=== PATIENT | male | born 1950 | race Caucasian/White ===

== ENCOUNTER 2018-12-16 10:58 | Outpatient (CLI) | payer MEDICARE, BC | END 2018-12-16 16:28 | disposition home or self-care (01) | LOC: D.CATH 10:58 | DX: I25.10 Atherosclerotic heart disease of native coronary artery without angina pectoris (principal); I65.29 Occlusion and stenosis of unspecified carotid artery ==

== ENCOUNTER 2019-01-26 07:14 | Outpatient (CLI) | payer MEDICARE, BC ==
[~2019-01-26] VITALS: Ht 180.3 cm; Wt 105.0 kg
--- NOTE | ~2019-01-26 | HEMODYNAMI ---
PATIENT:RANDALL FUENTES MEDICAL RECORD: [id number] : 54 LOCATION:[facility] ADMISSION DATE: 01/26/19 Generatedon:01/26/201911:48 Patient name: RANDALL FUENTES Patient #: [id number] SSN: : 1950 Date of study: 01/26/2019 Page: Of Hemodynamic Procedure Report Patient Data Patient Demographics Procedure consent was obtained First Name: RANDALL Gender: Male Last Name: GINA : 1950 Middle Initial: RUSTAM Age: 68 year(s) Patient #: [id number] Race: Unknown Additional ID: [id number] Contact details [address]: [address] [place] [address] [address] State: [place] City: [place] Zip code: [address] Admission Admission Data Admission Date: 01/26/2019 Admission Time: 7:14 Procedure Procedure Types Cath Procedure Peripheral Cath Diagnostic Procedure 4-Vessel Subclavian Arteriogram Uni Procedure Description Procedure Date Procedure Date: 01/26/2019 Procedure Start Time: 10:50 Procedure Staff Name Function Parvez Franco MD Performing Physician James Castro RT Monitor ERICKA ASKEW RT Scrub Manju Kwon RN Nurse Procedure Data Cath Procedure Fluoroscopy Diagnostic fluoroscopy Total fluoroscopy Time: time: 10.3 min 10.3 min Diagnostic fluoroscopy Total fluoroscopy dose: dose: 1511 mGy 1511 mGy Contrast Material Contrast Material Type Amount (ml) Isovue 300 200 Entry Location Entry Primary Successful Side Size Upsize Upsize Entry Closure Succes sful Closure Location (Fr) 1 (Fr) 2 (Fr) Remarks Device Remarks Femoral Right 5 Fr Exoseal artery Diagnostic catheters Device Type Used For End Catheter Placement Merit ULTRA BOLUS FLUSH 5Fr 90CM catheter ([id number]) Procedure Medications Medication Administration Route Dosage Versed I.V. 1 mg Fentanyl I.V. 50 mcg Versed I.V. 0.5 mg Fentanyl I.V. 25 mcg Versed I.V. 0.5 mg Heparin Bolus I.V. 4000 units Hemodynamics Rest Heart Rate: 91 (bpm) Snapshots Pre Cath Intra NCS Post Cath Vital Signs Time Heart Resp SPO2 etCO2 NIBP (mmHg) Rhythm Pain Sedation Rate (ipm) (%) (mmHg) Status Level (bpm) 10:13:50 33.8 116/86(97) NSR 0 (11) 10(A) , No pain 10:16:17 30.8 162/101(135) NSR 0 (11) 10(A) , No pain 10:17:33 35.3 163/92(131) NSR 0 (11) 10(A) , No pain 10:19:05 102 1 96 33.8 160/93(118) NSR 0 (11) 10(A) , No pain 10:23:24 90 13 94 33.8 160/90(127) NSR 0 (11) 10(A) , No pain 10:27:37 90 10 95 32.3 162/90(123) NSR 0 (11) 10(A) , No pain 10:31:54 90 11 95 25.5 158/93(124) NSR 0 (11) 10(A) , No pain 10:36:09 90 21 95 8.2 164/96(126) NSR 0 (11) 10(A) , No pain 10:40:30 91 10 94 0 148/87(128) NSR 0 (11) 10(A) , No pain 10:45:29 91 9 98 24 Measuring NSR 0 (11) 10(A) , No pain 10:46:53 92 10 95 36.7 Time NSR 0 (11) 10(A) Exceeded , No pain 10:50:19 92 13 94 36 160/96(129) NSR 0 (11) 10(A) , No pain 10:54:37 92 8 94 38.3 159/89(118) NSR 0 (11) 8(A) , No pain 10:58:54 91 11 97 36 162/89(122) NSR 0 (11) 8(A) , No pain 11:03:08 93 17 91 36 158/91(116) NSR 0 (11) 8(A) , No pain 11:07:23 93 16 96 37.5 168/92(125) NSR 0 (11) 8(A) , No pain 11:11:42 93 23 96 32.3 165/94(132) NSR 0 (11) 8(A) , No pain 11:16:00 91 15 96 24.7 165/96(122) NSR 0 (11) 8(A) , No pain 11:20:20 91 15 94 39.8 167/89(126) NSR 0 (11) 8(A) , No pain 11:24:36 91 13 94 33 167/96(125) NSR 0 (11) 8(A) , No pain 11:28:54 90 52 93 34.5 164/95(126) NSR 0 (11) 8(A) , No pain 11:33:12 91 17 92 36.8 167/92(120) NSR 0 (11) 8(A) , No pain 11:37:32 90 12 92 39.7 171/90(122) NSR 0 (11) 8(A) , No pain 11:41:54 90 14 93 36 166/91(129) NSR 0 (11) 8(A) , No pain Medications Time Medication Route Dose Verified Delivered Reason Notes Effectiven ess by by 10:53:21 Versed I.V. 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 0.5 Parvez Manju used for mg Joan Kwon brass molder 11:08:16 Fentanyl I.V. 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 0.5 Parvez Manju used for mg Joan Kwon brass molder Procedure Log Time Note 10:00:14 James MONTALVO (R) (CV) sent for patient. Start room use. 10:00:57 Time tracking: Regular hours (M-F 7:00 - 5:00) 10:01:02 Plan of Care:Hemodynamics will remain stable., Cardiac rhythm will remain stable., Comfort level will be maintained., Respiratory function will remain adequate., Patient/ family verbilizes understanding of procedure., Procedure tolerated without complication., Recovers from procedure without complications.. 10:01:09 Patient received from Outpatients to IR Alert and oriented. Tansferred to table in Supine position. 10:01:26 Signed procedure consent form obtained from patient. 10:01:30 ECG and BP/O2 sat monitors applied to patient. 10:01:31 Full Disclosure recording started 10:01:31 - 10:01:36 H&P Date Dictated: 01/26/2019 H&P Addendum completed by physician on day of procedure. (MUST COMPLETE FOR ALL OUTPATIENTS). 10:02:14 Pre-procedure instructions explained to patient. 10:02:15 Pre-op teaching completed and patient verbalized understanding. 10:02:32 Family in waiting room. 10:02:41 Use device set IR Diagnostic 10:02:42 Bag Decanter (2002S) opened to sterile field. 10:02:43 Sterile Angiographic Pack opened to sterile field. 10:02:43 Tegaderm 4 x 4 (1626W) opened to sterile field. 10:02:47 ACIST Syringe (51376) opened to sterile field. 10:02:47 ACIST Hand Control (61840) opened to sterile field. 10:02:48 ACIST Manifold (63253) opened to sterile field. 10:02:59 BENTSON 145cm wire ([id number]) opened to sterile field. 10:03:30 Is the patient allergic to Iodine/contrast media? No. 10:03:32 Is patient on blood thinner?Yes 10:03:34 ACC The patient was administered the following blood thiners within the last 24 hours: ACCAspirin 10:03:36 Patient diabetic? Yes. 10:03:37 If diabetic: On Metformin? Yes 10:03:44 If on Metformin: Last Dose? 01/25/2019 10:03:46 - 10:03:47 ----Pre-sedation anethsthesia assessment.---- 10:03:56 Previous problem with sedation/anesthesia? No ? 10:03:57 Snore? Yes 10:04:00 Sleep apnea? No 10:04:02 Deviated septum? No 10:04:03 Opens mouth fully? Yes 10:04:04 Sticks out tongue? Yes 10:04:06 Airway obstruction? No ? 10:04:08 Dentures? No ? 10:13:33 Pre procedure: left ulnar pulse Doppler 10:13:36 Pre procedure: left dorsailis pedis pulse Doppler 10:13:40 Pre procedure: right posterior tibial pulse Doppler 10:13:43 Pre procedure: left posterior tibial pulse Doppler 10:13:47 Sharps counted by scrub and verified by R.N. 10:13:47 Alarms reviewed by R. N. 10:13:51 Right groin area was prepped with chlora-prep and draped in sterile fashion 10:13:58 Patient pain scale 0/10 no pain. 10:14:36 IV patent on arrival in left hand with 0.9% NaCl at O. 10:18:00 Vital chart was started 10:22:49 Baseline sample Acquired. 10:22:51 Baseline sample Acquired. 10:49:38 Physician arrived 10:49:39 --------ALL STOP TIME OUT------ 10:49:39 Final Timeout: patient, procedure, and site verified with staff and physician. All members of the team are in agreement. 10:49:41 Right groin site verified by team. 10:49:46 Fire Safety Assessment: A--An alcohol-based skin anteseptic being used preoperatively., C--Open oxygen or nitrous oxide is being used. 10:49:49 1) 90+ Normal kidney functon but urine findings or structural abnormalities or genetic trait point to kidney disease. 10:49:53 Sedation plan: IV Moderate Sedation Medication:Versed, Fentanyl 10:50:14 Local anesthetic to right femoral artery with Lidocaine 1% by Parvez Franco MD.INITIAL ACCESS ONLY 10:50:25 SHEATH 5FR [place] (FYC916) opened to sterile field. 10:50:26 Micropuncture VSI 4FR kit opened to sterile field. 10:50:26 TUBING Contrast Injection High Pressure ([id number]) opened to sterile field. 10:50:28 A Merit ULTRA BOLUS FLUSH 5Fr 90CM catheter ([id number]) was advanced over the wire and used for . 10:50:31 Access obtained with 4Fr micropunture. 10:50:40 A 5 Fr sheath was inserted into the Right Femoral artery 10:53:21 Versed 1 mg I.V. was administered by Manju Kwon RN; used for procedure; 10:53:38 Fentanyl 50 mcg I.V. was administered by Manju Kwon RN; used for procedure; 11:00:57 Heparin Bolus 4000 units I.V. was administered by Manju Kwon RN; used for procedure; 11:04:13 Versed 0.5 mg I.V. was administered by Manju Kwon RN; used for procedure; 11:04:53 GLIDE CATHETER 5FR ROSAS 2 100cm (CG511) opened to sterile field. 11:08:16 Fentanyl 25 mcg I.V. was administered by Manju Kwon RN; used for procedure; 11:27:11 Versed 0.5 mg I.V. was administered by Manju Kwon RN; used for procedure; 11:36:45 EXOSEAL 5Fr (EX500) opened to sterile field. 11:36:57 Sheath removed intact; hemostasis achieved with Exoseal to the Right Femoral artery. 11:37:05 Procedure ended.(Physican Out) 11:37:43 Fluoroscopy time 10.30 minutes. 11:37:57 Flurop Dose total: 1511 11:37:57 Fluoroscopy dose: 1511 mGy 11:38:01 Contrast amount:Isovue 300 200ml. 11:38:03 Sharps counted by scrub and verified by R.N. 11:38:05 Insertion/operative site no bleeding no hematoma. 11:38:08 Post-op/insertion site Right Femoral artery dressed using a 4 x 4 and Tegaderm. 11:38:12 Post right femoral artery:stable 11:38:14 Post Procedure Pulses reassessed and unchanged 11:45:49 Post procedure instruction explained to patient.Patient verbalizes understanding. 11:45:50 Procedure and supply charges have been captured, reviewed, submitted an d are correct. 11:45:53 Report given to Outpatients. 11:45:57 Patient transfered to Outpatients with Stretcher. 11:48:14 Vital chart was stopped Device Usage Item Name Manufacture Quantity Catalog Number Hospital Part Current Tx nimal Lot# / Charge Number Stock Stock Serial# Code Bag Decanter Microtek 1 [id number] 34493 [id number] 5 () Medical Inc. Sterile Cardinal 1 [id number] 055071 858800 5 Angiographic Health Pack Tegaderm 4 x 4 3M 1 1626W 443317 819386 343043 5 (1626W) ACIST Syringe Acist 1 15551 046779 655034 858926 20 (17093) Medical Systems Inc ACIST Hand Acist 1 29905 285985 441540 879086 5 Control Medical (88763) Systems Inc ACIST Manifold Acist 1 99821 459497 341017 411377 5 (82313) Medical Systems Inc BENTSON 145cm Cook Medical 1 [id number] 290453 604108 5 wire (D24999) SHEATH 5FR Terumo 1 GWG594 789564 431074 290133 5 [place] (HFI165) Micropuncture VSI VASCULAR 1 7266V 423841 655222 5 VSI 4FR kit SOLUTIONS TUBING Merit 1 [id number] 116256 286546 571059 5 Contrast Medical Injection High Pressure (RCP770L) Merit ULTRA Merit 1 [id number] 102041 993535 5 BOLUS FLUSH Medical 5Fr 90CM catheter ([id number]) GLIDE CATHETER Terumo 1 CG511 102913 127015 5 5FR ROSAS 2 100cm (CG511) EXOSEAL 5Fr Cardinal 1 EX500 153484 983570 974685 10 [id number] (EX500) Health Signature Audit [place] Stage Time Signature Unsigned Intra-Procedure 01/26/2019 James 11:48:09 AM Shuffield RT (R) (CV) Signatures Monitor : James Signature : Edwinield RT Date : Time : [place] [address] [place] [address]
[~2019-01-26 07:14] MED LIST: DYRENIUM50 MG PO; GLUCOPHAGE500 MG PO; LEVOTHYROXINE200 MCG PO; NEURONTIN 300300 MG PO; PRAVACHOL20 MG PO; TRAZODONE HCL150 MG PO; WELLBUTRIN SR150 MG PO
[2019-01-26 07:50] LABS: BASOPHILS 0.4 % (0-2); EOSINOPHILS 3.3 % (0-7); HEMATOCRIT 39.7 % (42.0-54.0); HEMOGLOBIN 13.8 g/dL (13.5-17.5); IMMATURE GRANULOCYTES 0.2 % (0-5); LYMPHOCYTES 37.8 % (15-50); MCH 33.7 pg (26.0-34.0); MCHC 34.8 g/dL (31.0-37.0); MCV 96.8 fL (80.0-100.0); MONOCYTES 10.7 % (2-11); NEUTROPHILS 47.6 % (40-80); PLATELET COUNT 144 10x3/uL (130-400); RDW 12.9 % (11.5-14.5); WBC 4.6 10x3/uL (4.8-10.8)
[2019-01-26 07:54] LABS: APTT 29.7 SECONDS (22.8-39.4); INR 1.07 (0.85-1.17); PROTIME 13.4 SECONDS (11.6-15.0)
[2019-01-26 07:55] LABS: CALC OSMOLALITY 274 mosm/kg (275-300); CALCIUM 8.9 mg/dL (8.5-10.1); CARBON DIOXIDE 29.3 mmol/L (21.0-32.0); CHLORIDE - SERUM 101 mmol/L (98-107); CREATININE - SERUM 0.9 mg/dL (0.6-1.3); GLUCOSE 133 mg/dL (74-106); POTASSIUM - SERUM 3.9 mmol/L (3.5-5.1); SODIUM 137 mmol/L (136-145); UREA NITROGEN 10 mg/dL (7-18); eGFR NON AFRICAN AMERICAN 90 mL/min (90-120)
[2019-01-26 09:29] VITALS: Ht 180.3 cm; Wt 105.0 kg
--- NOTE | 2019-01-26 14:01 | NUR ---
1205 PT INSTRUCTED AND UNDERSTANDS TO KEEP RIGHT LEG STRAIGHT AND NOT TO BEND LEG. HOB ELEVATED 30 DEGREES TO RELIEVE BACK PRESSURE.
--- NOTE | 2019-01-26 14:03 | NUR ---
1220 VITAL SIGNS ARE BEING RECORDED ON POST PROCEDURE FORM AND IN PAPER CHART FOR DOCUMENTATION. FINGER FOOD DIET SERVED TO PT.
== END 2019-01-26 15:46 | disposition home or self-care (01) ==
LOC: D.SP 07:14 → D.RAD 10:00 → D.SP 10:00
PROVIDERS: Radiology Diagnostic Radiology; ATTEND Internal Medicine Cardiovascular Disease
DX: I70.8 Atherosclerosis of other arteries (principal); I65.02 Occlusion and stenosis of left vertebral artery; Z01.812 Encounter for preprocedural laboratory examination

== ENCOUNTER → 2019-07-28 08:39 | Outpatient (CLI) | payer MEDICARE, BC ==
[2019-01-26 09:29] VITALS: BMI 32.2
== END | disposition home or self-care (01) ==
LOC: D.US 08:39
PROVIDERS: ATTEND Internal Medicine Cardiovascular Disease
DX: I65.29 Occlusion and stenosis of unspecified carotid artery (principal)